=== PATIENT | male | born 1955 | race Caucasian/White ===

== ENCOUNTER → 2016-12-13 | Outpatient (CLI) | payer MEDICAID ==
[~2016-12-13] MED LIST: AMLODIPINE BESY1 C14 PO; ATENOLOL25 MG PO; ATIVAN0.5 MG PO; HUMALOG MIX75/253 M1 SC; LISINOPRIL5 MG PO; METFORMIN1000 MG PO; METFORMIN500 MG PO; NEURONTIN600 MG PO; PERCOCET 325 MG1 TA2 PO; PRILOSEC10 MG PO; TRAMADOL50 MG PO; VENLAFAXINE HC100 MG PO
== END | disposition home or self-care (01) ==
LOC: RAD 12:06
DX: M25.511 Pain in right shoulder (principal); M25.512 Pain in left shoulder

== ENCOUNTER → 2017-03-31 | Outpatient (CLI) | payer OTHER | END | disposition home or self-care (01) | LOC: ORTHO 03:07 | DX: M17.12 Unilateral primary osteoarthritis, left knee (principal) ==

== ENCOUNTER → 2017-05-19 | Outpatient (CLI) | payer OTHER | END | disposition home or self-care (01) | LOC: ORTHO 02:05 | DX: M17.11 Unilateral primary osteoarthritis, right knee (principal) ==

== ENCOUNTER → 2019-09-24 | Outpatient (CLI) | payer OTHER | END | disposition home or self-care (01) | LOC: US 12:30 | DX: I65.23 Occlusion and stenosis of bilateral carotid arteries (principal); I25.10 Atherosclerotic heart disease of native coronary artery without angina pectoris; I10 Essential (primary) hypertension; E11.9 Type 2 diabetes mellitus without complications ==

== ENCOUNTER 2019-10-23 14:06 | Inpatient (IN) | payer OTHER ==
[~2019-10-23] VITALS: Ht 187.9 cm; Wt 97.7 kg
[~2019-10-23 14:06] MED LIST changes: +GLUCOPHAGE500 M1 PO; -METFORMIN1000 MG PO
[2019-10-23 14:09] VITALS: BP 155/82
[2019-10-23 14:52] LABS: BASO % 0.2 % (0.0-1.0); EOS # 0.2 10*3/uL (0.0-0.4); EOS % 1.2 % (1.0-4.0); HEMATOCRIT 38.6 % (42.0-52.0); HEMOGLOBIN 12.9 g/dl (14.0-18.0); LYMPH # 1.1 10*3/uL (1.3-4.4); MEAN CELL VOLUME 93.7 fl (80.0-94.0); MEAN CORPUSCULAR HGB 31.3 pg (27.0-31.0); MEAN CORPUSCULAR HGB CONC 33.4 g/dl (33.0-37.0); MEAN PLATELET VOLUME 9.9 fl (9.6-12.3); MONO # 1.1 10*3/uL (0.1-1.0); MONO % 8.8 % (3.0-9.0); NEUT % 80.5 % (47.0-73.0); PLATELET COUNT AUTOMATED 241 10*3/uL (130-400); RED BLOOD COUNT 4.12 10*6/uL (4.50-5.90); RED CELL DISTRI WIDTH 12.1 % (0-14.5); WHITE BLOOD COUNT 12.4 10*3/uL (4.8-10.8)
[2019-10-23 15:10] LABS: ALBUMIN 4.1 gm/dl (3.1-4.5); ALKALINE PHOSPHATASE 86 U/L (45-117); BUN 9 mg/dl (7-24); CHLORIDE 99 mmol/L (98-107); CREATININE 0.89 mg/dL (0.70-1.30); LIPASE 115 U/L (73-393); POTASSIUM 3.9 mmol/L (3.5-5.1); SGOT/AST 13 IU/L (3-35); SGPT/ALT 25 U/L (12-78); SODIUM 133 mmol/L (136-145); TOTAL PROTEIN 8.5 gm/dL (6.4-8.2)
[2019-10-23 15:14] VITALS: BP 148/73
[2019-10-23 15:21] LABS: BILIRUBIN NEGATIVE (NEGATIVE); BLOOD NEGATIVE (NEGATIVE); CLARITY CLEAR (CLEAR); COLOR YELLOW (YELLOW); GLUCOSE NEGATIVE (NEGATIVE); KETONE NEGATIVE (NEGATIVE); LEUKO ESTERASE NEGATIVE (NEGATIVE); NITRITE NEGATIVE (NEGATIVE); UROBILINOGEN 0.2 E.U./dl (0.2-1.0)
[2019-10-23 15:27] LABS: EPITHELIAL CELLS 0-2
[2019-10-23 15:53] VITALS: BP 157/73
[2019-10-23 17:37] VITALS: BP 158/83
--- NOTE | 2019-10-23 17:39 | NUR ---
PT STATES THAT HE FEELS A LITTLE BETTER AFTER PEPCID. SIDERAILS UP X2. AWAKE AND ALERT. CALL LIGHT WITHIN REACH. FAMILY AT BEDSIDE
[2019-10-23 19:48] VITALS: BP 160/74
--- NOTE | 2019-10-23 19:48 | NUR ---
A 64, admitted to , under the services of EMILY Scott DO with a diagnosis of DIVERTICULITIS; SEPSIS . Chief complaint is ABDOMINAL PAIN. Patient arrived via bed from ER. Monitor applied. Initial assessment completed. Vital signs taken and recorded. EMILY SCOTT DO notified of admission to the unit. Orders received. See assessment for past medical history, medications and allergies. Patient and/or family oriented to unit. [facility] visitation policy reviewed. Clothing/patient valuable form completed. RUSS SKAGGS
--- NOTE | 2019-10-23 20:00 | NUR ---
DR CAPELLAN NOTIFIED OF VERIFIED HOME MEDS.
[2019-10-23] MEDS ORDERED: CLOPIDOGREL75 MG PO (20:19)
[2019-10-23] MEDS ORDERED: LOTREL 10-40 M1 EACH PO (20:19)
[2019-10-23] MEDS ORDERED: ATORVASTATIN CA40 M1 PO (20:20)
[2019-10-23] MEDS ORDERED: NOVOLOG MIX 70/33 ML SC (20:22)
[2019-10-23] MEDS ORDERED: BASAG SOL IJ (20:22)
[2019-10-24] VITALS: BP 158/70
--- NOTE | 2019-10-24 00:01 | NUR ---
24HR CHART CHECK COMPLETED.
--- NOTE | 2019-10-24 00:20 | NUR ---
PRN MORPHINE GIVEN FOR COMPLAINTS OF LLQ PAIN RATED A 7/10. WILL MONITOR FOR EFFECTIVENESS.
--- NOTE | 2019-10-24 01:00 | NUR ---
Patient resting quietly with no c/o discomfort. Respirations easy and regular. Vital signs stable. No overt distress. HERMANN DOMINGO
--- NOTE | 2019-10-24 01:15 | NUR ---
RE-EVALUATED AT THIS TIME. PRN MORPHINE EFFETIVE. PT IS RESTING COMFORTABLE WITH PAIN DECREASED. CONTINUE TO MONITOR THE PT.
--- NOTE | 2019-10-24 02:41 | NUR ---
PRN NORCO GIVEN FOR COMPLAINTS OF LLQ PAIN RATED 7/10. WILL MONITOR FOR EFFECTIVENESS.
--- NOTE | 2019-10-24 03:35 | NUR ---
RE-EVALUATED AT THIS TIME. PT IS RESTING COMFORTABLY AT THIS TIME. NO SIGNS OF DISTRESS. RESPIRATIONS REGULAR AT 16 PER MINUTE. PRN NORCO EFFECTIVE.
--- NOTE | 2019-10-24 05:36 | NUR ---
PRN MORPHINE GIVEN FOR COMPLAINTS OF LLQ PAIN RATED A 7/10. WILL MONITOR FOR EFFECTIVENESS.
--- NOTE | 2019-10-24 06:30 | NUR ---
RE-EVALUATED AT THIS TIME. PRN MORPHINE EFFECTIVE PER PT. PAIN IS UNDER CONTROL AT THIS TIME. CONTINUE TO MONITOR THE PT
[2019-10-24 06:39] LABS: BASO % 0.5 % (0.0-1.0); EOS # 0.3 10*3/uL (0.0-0.4); EOS % 3.5 % (1.0-4.0); HEMOGLOBIN 12.3 g/dl (14.0-18.0); LYMPH # 1.5 10*3/uL (1.3-4.4); LYMPH % 17.1 % (27.0-41.0); MEAN CELL VOLUME 95.2 fl (80.0-94.0); MEAN CORPUSCULAR HGB 30.8 pg (27.0-31.0); MEAN CORPUSCULAR HGB CONC 32.4 g/dl (33.0-37.0); MEAN PLATELET VOLUME 10.7 fl (9.6-12.3); MONO # 0.8 10*3/uL (0.1-1.0); MONO % 9.5 % (3.0-9.0); NEUT % 68.9 % (47.0-73.0); PLATELET COUNT AUTOMATED 244 10*3/uL (130-400); RED BLOOD COUNT 3.99 10*6/uL (4.50-5.90); RED CELL DISTRI WIDTH 11.9 % (0-14.5); WHITE BLOOD COUNT 8.8 10*3/uL (4.8-10.8)
[2019-10-24 07:02] LABS: BUN 6 mg/dl (7-24); CHLORIDE 104 mmol/L (98-107); CREATININE 0.94 mg/dL (0.70-1.30); PHOSPHOROUS 3.2 mg/dL (2.5-4.9); POTASSIUM 3.8 mmol/L (3.5-5.1); SODIUM 137 mmol/L (136-145)
[2019-10-24 08:00] VITALS: BP 170/79
--- NOTE | 2019-10-24 08:40 | NUR ---
IN TO SEE PATIENT AT THIS TIME.
--- NOTE | 2019-10-24 09:12 | NUR ---
PT MEDICATED WITH PO NORCO PER PRN ORDER FOR C/O ABD PAIN. RATES PAIN 05/06. WILL MONITOR EFFECTIVENESS. CALL LIGHT WITHIN REACH.
--- NOTE | 2019-10-24 10:00 | NUR ---
NORCO RELIEVING PAIN SLIGHTLY PER PATIENT.
--- NOTE | 2019-10-24 10:28 | NUR ---
PT MEDICATED WITH IV MORPHINE PER PRN ORDER FOR C/O ABD PAIN. RATES PAIN 06/05. WILL MONITOR EFFECTIVENESS.
--- NOTE | 2019-10-24 11:00 | NUR ---
PAIN BEING RELIEVED PER PT.
[2019-10-24 12:00] VITALS: BP 131/65
--- NOTE | 2019-10-24 12:33 | NUR ---
NOTIFIED OF CONSULT.
--- NOTE | 2019-10-24 14:15 | NUR ---
PT GIVEN NORCO PO PER PRN ORDER FOR C/O ABD PAIN. RATES PAIN 5/10. WILL MONITOR EFFECTIVENESS.
--- NOTE | 2019-10-24 15:58 | NUR ---
C/O PAIN TO ABD OF 02/03 AND REQUESTED MS IV. GIVEN AT THIS TIME. WILL CONT TO MONITOR. CALL LIGHT IN REACH.
[2019-10-24 16:00] VITALS: BP 155/65
--- NOTE | 2019-10-24 16:58 | NUR ---
IV MS EFF PER PT. WILL CONT TO MONITOR. CALL LIGHT IN REACH.
--- NOTE | 2019-10-24 18:35 | NUR ---
PT C/O INDIGESTION. NEW ORDER RECEIVED FROM DR MCKAY FOR TUMS.
--- NOTE | 2019-10-24 19:41 | NUR ---
TOOK OVER CARE OF PT AT THIS TIME. PT RESTING IN BED, PT C/O PAIN TO ABDOMEN. RATES PAIN 8/10. NORCO GIVEN AT THIS TIME. RESPIRATIONS EASY AND UNLABORED. BLOOD PRESSURE WNL. NO OTHER S/S OF DISTRESS NOTED. WILL MONITOR FOR EFFECTIVENESS. CALL LIGHT IN REACH.
[2019-10-24 20:00] VITALS: BP 153/58
--- NOTE | 2019-10-24 20:41 | NUR ---
NORCO EFFECTIVE AT THIS TIME.
--- NOTE | 2019-10-24 21:24 | NUR ---
PT GIVEN MORPHINE AT THIS TIME FOR COMLAINTS OF ABDOMINAL PAIN AND BACK PAIN. WILL MONITOR FOR EFFECTIVENESS. ALL OTHER HS MEDICATIONS GIVEN AT THIS TIME. BLOOD SUGAR OBTAINED AND S/S COVERAGE GIVEN PER ORDERS. RESPIRATIONS UNLABORED. HOB ELEVATED. SAFETY MEASURES IN PLACE. CALL LIGHT IN REACH.
--- NOTE | 2019-10-24 22:24 | NUR ---
MORPHINE EFFECTIVE PER PT.
[2019-10-25] VITALS: BP 125/64
--- NOTE | 2019-10-25 02:41 | NUR ---
24 HR chart check completed.
--- NOTE | 2019-10-25 05:17 | NUR ---
PT GIVEN MORPHINE AT THIS TIME FOR C/O PAIN TO ABDOMEN AND BACK. WILL MONITOR FOR EFFECTIVENESS. CALL LIGHT IN REACH.
[2019-10-25 06:41] LABS: EOS # 0.4 10*3/uL (0.0-0.4); EOS % 5.1 % (1.0-4.0); HEMATOCRIT 33.5 % (42.0-52.0); HEMOGLOBIN 11.2 g/dl (14.0-18.0); LYMPH # 0.5 10*3/uL (1.3-4.4); MEAN CELL VOLUME 93.1 fl (80.0-94.0); MEAN CORPUSCULAR HGB 31.1 pg (27.0-31.0); MEAN CORPUSCULAR HGB CONC 33.4 g/dl (33.0-37.0); MEAN PLATELET VOLUME 10.4 fl (9.6-12.3); MONO # 0.6 10*3/uL (0.1-1.0); MONO % 7.6 % (3.0-9.0); NEUT # 6.2 10*3/uL (2.3-7.9); PLATELET COUNT AUTOMATED 201 10*3/uL (130-400); RED CELL DISTRI WIDTH 11.8 % (0-14.5); WHITE BLOOD COUNT 7.7 10*3/uL (4.8-10.8)
[2019-10-25 06:58] LABS: ALBUMIN 3.2 gm/dl (3.1-4.5); BUN 13 mg/dl (7-24); CHLORIDE 103 mmol/L (98-107); CREATININE 0.92 mg/dL (0.70-1.30); POTASSIUM 3.8 mmol/L (3.5-5.1); SGOT/AST 12 IU/L (3-35); SGPT/ALT 21 U/L (12-78); SODIUM 135 mmol/L (136-145)
[2019-10-25 07:06] LABS: ALKALINE PHOSPHATASE 66 U/L (45-117); THYROID STIM HORMONE (HS) 0.761 uIU/ml (0.358-4.75); TOTAL PROTEIN 6.9 gm/dL (6.4-8.2)
[2019-10-25 08:00] VITALS: BP 156/71
[2019-10-25 12:00] VITALS: BP 139/62
[2019-10-25] MEDS ORDERED: FLAGYL500 MG PO (12:55)
[2019-10-25] MEDS ORDERED: CIPRO500 MG PO (12:55)
--- NOTE | 2019-10-25 15:53 | NUR ---
PATIENT DISCHARGED TO HOME.
--- NOTE | 2019-10-25 16:48 | NUR ---
PATIENT NOW LEAVING WITH BELONGINGS. F/U CARE INSTRUCTIONS GIVEN.
== END 2019-10-25 17:02 | disposition home or self-care (01) | DRG 872 ==
LOC: ED 14:06 → EDHOLD 18:18 → 5E 19:00
PROVIDERS: Internal Medicine; Physician Assistant; ADMIT Internal Medicine
DX: A41.9 Sepsis, unspecified organism (principal); E87.1 Hypo-osmolality and hyponatremia; K57.32 Diverticulitis of large intestine without perforation or abscess without bleeding; F32.9 Major depressive disorder, single episode, unspecified; G89.29 Other chronic pain; M25.562 Pain in left knee; E66.3 Overweight; F41.9 Anxiety disorder, unspecified; Z96.653 Presence of artificial knee joint, bilateral; E11.51 Type 2 diabetes mellitus with diabetic peripheral angiopathy without gangrene; E78.5 Hyperlipidemia, unspecified; D64.9 Anemia, unspecified; I10 Essential (primary) hypertension; E11.65 Type 2 diabetes mellitus with hyperglycemia; Z79.4 Long term (current) use of insulin; Z88.0 Allergy status to penicillin; Z88.8 Allergy status to other drugs, medicaments and biological substances; Z82.3 Family history of stroke; Z86.010 Personal history of colon polyps; Z79.899 Other long term (current) drug therapy; Z79.02 Long term (current) use of antithrombotics/antiplatelets; Z68.27 Body mass index [BMI] 27.0-27.9, adult

== ENCOUNTER → 2019-11-12 | Outpatient (CLI) | payer OTHER ==
[~2019-11-12] MED LIST changes: +ATORVASTATIN CA40 M1 PO; +BASAG SOL IJ; +CIPRO500 MG PO; +CLOPIDOGREL75 MG PO; +FLAGYL500 MG PO; +LOTREL 10-40 M1 EACH PO; +NOVOLOG MIX 70/33 ML SC
--- NOTE | 2019-11-12 07:00 | NUR ---
INFORMED CONSENT OBTAINED FOR LEXISCAN NUCLEAR STRESS TEST WITH DR. ORDAZ. RESTING EKG NSR WITH A RESTING HR OF 73 WITH BP OF 132/72. LUNGS CLEAR WITH SPO2 OF 99% ON ROOM AIR. PT COMPLETED A 1:00 LEXISCAN PROTOCOL RECEIVING LEXISCAN 0.4 MG IV OVER 10 SECONDS. HAD NO CHEST PAIN OR ANY EKG CHANGES. DID C/O "ODD FEELING" THAT SUBSIDED IN RECOVERY. HAD A PEAK HR OF 84 WITH BP OF 112/50. LAST RECOVERY HR OF 82 WITH BP OF 120/58. AWAITING SCANNING IN STABLE CONDITION.
== END | disposition home or self-care (01) ==
LOC: CARD 01:05
DX: I73.9 Peripheral vascular disease, unspecified (principal); R06.02 Shortness of breath

== ENCOUNTER → 2020-10-07 | Outpatient (CLI) | payer OTHER ==
[~2020-10-07] MED LIST changes: +BASAG SOL SC; +CARAFATE1 G1 PO; +PROTONIX40 MG PO
== END | disposition home or self-care (01) ==
LOC: COVID19 00:24
PROVIDERS: ATTEND Surgery
DX: Z01.812 Encounter for preprocedural laboratory examination (principal); Z20.828 Contact with and (suspected) exposure to other viral communicable diseases

== ENCOUNTER → 2020-10-12 | Day surgery (SDC) | payer OTHER ==
[~2020-10-12] VITALS: Ht 187.9 cm; Wt 95.3 kg
[2020-10-12 06:59] VITALS: BP 126/61
[2020-10-12 08:01] VITALS: BP 160/113
[2020-10-12 08:16] VITALS: BP 133/70
[2020-10-12 08:31] VITALS: BP 154/67
== END ==
LOC: SDC 09-14 08:00
PROVIDERS: ATTEND Surgery
DX: Z12.11 Encounter for screening for malignant neoplasm of colon (principal); K63.5 Polyp of colon; K29.80 Duodenitis without bleeding; K57.30 Diverticulosis of large intestine without perforation or abscess without bleeding; K21.00 Gastro-esophageal reflux disease with esophagitis, without bleeding; K44.9 Diaphragmatic hernia without obstruction or gangrene; Z86.010 Personal history of colon polyps; I10 Essential (primary) hypertension; E11.9 Type 2 diabetes mellitus without complications; E78.00 Pure hypercholesterolemia, unspecified; M19.90 Unspecified osteoarthritis, unspecified site; Z98.890 Other specified postprocedural states; I25.10 Atherosclerotic heart disease of native coronary artery without angina pectoris; Z86.73 Personal history of transient ischemic attack (TIA), and cerebral infarction without residual deficits; F41.9 Anxiety disorder, unspecified; Z87.11 Personal history of peptic ulcer disease; Z88.0 Allergy status to penicillin; Z88.8 Allergy status to other drugs, medicaments and biological substances

== ENCOUNTER → 2020-11-19 | Outpatient (CLI) | payer OTHER | END | disposition home or self-care (01) | LOC: US 08:30 | PROVIDERS: ATTEND Physician Assistant | DX: I73.9 Peripheral vascular disease, unspecified (principal) ==

== ENCOUNTER → 2021-07-19 | Outpatient (CLI) | payer OTHER | END | disposition home or self-care (01) | LOC: COVID19 00:11 → LAB 00:11 → COVID19 10:30 | PROVIDERS: ATTEND Surgery Vascular Surgery | DX: Z11.52 Encounter for screening for COVID-19 (principal) ==

== ENCOUNTER → 2022-07-06 | Outpatient (CLI) | payer OTHER | END | disposition home or self-care (01) | LOC: LAB 12:50 | PROVIDERS: ATTEND Physician Assistant | DX: Z77.018 Contact with and (suspected) exposure to other hazardous metals (principal) ==

== ENCOUNTER → 2022-08-09 | Outpatient (CLI) | payer OTHER ==
[2022-08-09 15:12] LABS: BASO % 0.3 % (0.0-1.0); EOS # 0.3 10*3/uL (0.0-0.4); HEMATOCRIT 39.1 % (42.0-52.0); LYMPH # 1.6 10*3/uL (1.3-4.4); LYMPH % 25.6 % (27.0-41.0); MEAN CELL VOLUME 93.1 fl (80.0-94.0); MEAN CORPUSCULAR HGB 31.4 pg (27.0-31.0); MEAN CORPUSCULAR HGB CONC 33.8 g/dl (33.0-37.0); MEAN PLATELET VOLUME 9.6 fl (9.6-12.3); MONO # 0.6 10*3/uL (0.1-1.0); MONO % 8.9 % (3.0-9.0); NEUT # 3.8 10*3/uL (2.3-7.9); NEUT % 60.9 % (47.0-73.0); PLATELET COUNT AUTOMATED 234 10*3/uL (130-400); RED CELL DISTRI WIDTH 12.9 % (0-14.5); WHITE BLOOD COUNT 6.2 10*3/uL (4.8-10.8)
[2022-08-09 15:28] LABS: ACT PARTIAL THROMBO TIME 28.9 SECONDS (20.0-32.1); INTERNATIONAL NORM RATIO 1.2 (2.0-3.5)
[2022-08-09 15:29] LABS: BUN 10 mg/dl (7-24); CHLORIDE 102 mmol/L (98-107); CREATININE 0.69 mg/dL (0.70-1.30); POTASSIUM 3.9 mmol/L (3.5-5.1); SODIUM 137 mmol/L (136-145)
== END | disposition home or self-care (01) ==
LOC: LAB 14:38
PROVIDERS: ATTEND Surgery Vascular Surgery
DX: I73.9 Peripheral vascular disease, unspecified (principal); R79.1 Abnormal coagulation profile; Z01.818 Encounter for other preprocedural examination

== ENCOUNTER → 2022-08-23 | Outpatient (CLI) | payer OTHER ==
[2022-08-23 12:47] LABS: BASO % 0.7 % (0.0-1.0); EOS # 0.1 10*3/uL (0.0-0.4); EOS % 2.2 % (1.0-4.0); HEMATOCRIT 41.3 % (42.0-52.0); LYMPH # 1.1 10*3/uL (1.3-4.4); LYMPH % 19.3 % (27.0-41.0); MEAN CELL VOLUME 91.4 fl (80.0-94.0); MEAN CORPUSCULAR HGB 31.4 pg (27.0-31.0); MEAN CORPUSCULAR HGB CONC 34.4 g/dl (33.0-37.0); MEAN PLATELET VOLUME 9.4 fl (9.6-12.3); MONO # 0.5 10*3/uL (0.1-1.0); MONO % 9.2 % (3.0-9.0); NEUT # 3.7 10*3/uL (2.3-7.9); NEUT % 68.4 % (47.0-73.0); PLATELET COUNT AUTOMATED 230 10*3/uL (130-400); RED BLOOD COUNT 4.52 10*6/uL (4.50-5.90); RED CELL DISTRI WIDTH 12.4 % (0-14.5); WHITE BLOOD COUNT 5.4 10*3/uL (4.8-10.8)
[2022-08-23 12:58] LABS: ACT PARTIAL THROMBO TIME 26.8 SECONDS (20.0-32.1)
[2022-08-23 13:03] LABS: BUN 7 mg/dl (7-24); CHLORIDE 100 mmol/L (98-107); CREATININE 0.69 mg/dL (0.70-1.30); POTASSIUM 4.1 mmol/L (3.5-5.1); SODIUM 133 mmol/L (136-145)
== END | disposition home or self-care (01) ==
LOC: LAB 12:15
PROVIDERS: ATTEND Surgery Vascular Surgery
DX: I73.9 Peripheral vascular disease, unspecified (principal); R79.1 Abnormal coagulation profile; Z01.818 Encounter for other preprocedural examination

== ENCOUNTER → 2022-09-26 | Outpatient (CLI) | payer OTHER ==
[2022-09-26 15:56] LABS: INTERNATIONAL NORM RATIO 4.3 (2.0-3.5)
== END | disposition home or self-care (01) ==
LOC: LAB 15:19
PROVIDERS: ATTEND Physician Assistant
DX: I73.9 Peripheral vascular disease, unspecified (principal)

== ENCOUNTER → 2024-02-23 | Outpatient (CLI) | payer MEDICARE | END | disposition home or self-care (01) | LOC: RAD 10:49 | PROVIDERS: ATTEND Physician Assistant | DX: R05.9 Cough, unspecified (principal); I10 Essential (primary) hypertension; R06.02 Shortness of breath; I73.9 Peripheral vascular disease, unspecified ==

== ENCOUNTER → 2025-07-04 | Outpatient (CLI) | payer MEDICARE | END | disposition home or self-care (01) | LOC: ORTHO 03:06 | PROVIDERS: ATTEND Orthopaedic Surgery | DX: M18.12 Unilateral primary osteoarthritis of first carpometacarpal joint, left hand (principal); M11.232 Other chondrocalcinosis, left wrist; M85.88 Other specified disorders of bone density and structure, other site; M25.532 Pain in left wrist ==